=== PATIENT | female | born 1995 | race Caucasian/White ===

== ENCOUNTER 2020-12-13 15:48 | Emergency (ER) | payer SELFPAY ==
[2020-12-13 17:06] VITALS: BP 135/85; PULSE 86; RESP 18; TEMP 36.8; O2SAT 98; BMI 64.2
--- NOTE | 2020-12-13 18:19 | ECG_ITS ---
[facility] Test Date: 2020-12-13 Pat Name: Yue Morris Department: Room: Gender: Female Software Test Specialist: : 1995 Requested By: Shar Hummel Order Number: [id number] Leila MD: Annlaise Thomson M.D. Measurements Intervals [place] Rate: 80 P: 55 WI: 185 QRS: 47 QRSD: 90 T: 30 QT: 372 QTc: 432 Interpretive Statements SINUS RHYTHM WITH OCCASIONAL VENTRICULAR PREMATURE COMPLEXES Compared to ECG 05/21/2019 18:02:21 Ventricular premature complex(es) now present Electronically Signed On 12-13-2020 18:52:55 CDT by Annalise Thomson M.D. [id number]
--- NOTE | 2020-12-13 18:19 | XRR_ITS ---
PROCEDURE INFORMATION: Exam: XR Chest Exam date and time: 12/13/2020 6:19 PM Age: 25 years old Clinical indication: Sternal or substernal pain; Patient HX: Sternal cp, HX blood clots TECHNIQUE: Imaging protocol: XR of the chest. Views: 1 view. COMPARISON: CR Chest 1 [place] [id number] 05/21/2019 6:08 PM FINDINGS: Lungs: Unremarkable. No consolidation. Pleural spaces: Unremarkable. No pleural effusion. No pneumothorax. Heart/Mediastinum: Unremarkable. No cardiomegaly. Bones/joints: Unremarkable. XR/XR chest 1V portable [id number] IMPRESSION: No change, unremarkable
--- NOTE | 2020-12-13 18:31 | ED_ITS ---
HPI - Chest Pain General: Chief Complaint: Chest Pain Stated Complaint: BLOOD CLOT HX, RECENTLY TAKEN OFF MEDS, NOW WORSE Time Seen by Provider: 12/13/20 17:10 History of Present Illness: HPI narrative: Patient is a 25-year-old female comes to the ED with chest pain. Patient has past medical history blood clots and has had a PE in the past. Patient stopped taking blood thinners approximately 2 years ago due to the cost of the med and Thought it was not beneficial anymore. She had been taking blood thinners for about 3 years before she stopped. She says that 3 days ago she started developing left-sided chest pain that felt similar to her past blood clot and PE. She endorses some minimal shortness of breath. She says that pain in her chest is rated a 5 out of 10 currently. She took some tramadol before arriving to the ED and she states that has helped the chest pain some. Denies any hemoptysis, fever, chills, nausea/vomiting, abdominal pain, bladder or bowel symptoms. Associated symptoms: Reports dyspnea; Deny abdominal pain, fever(s), nausea, palpitations or vomiting Review of Systems Const: Denies: fever(s), chills or fatigue Eyes: Denies: change in vision or eye discomfort ENMT: Denies: throat pain, odynophagia, nasal discharge or nasal congestion Card: Reports: chest pain; Denies: palpitations, edema, swelling of feet/ankles, dyspnea on exertion or orthopnea Resp: Reports: dyspnea; Denies: productive cough or non-productive cough GI: Denies: abdominal pain, nausea, vomiting, diarrhea, constipation or hematochezia : Denies: flank pain, dysuria or hematuria Musc: Denies: neck pain, back pain or extremity swelling Skin/Breast: Denies: rash or new lesions Neuro: Denies: headache(s), numbness in extremities or weakness in extremities [facility] Female Reproductive History: Date of last menstrual period: 12/11/20 Physical Exam Const: COMMON NORMALS: no acute distress, patient oriented x3 and alert GENERAL APPEARANCE: cooperative and comfortable NUTRITIONAL APPEARANCE: obese morbidly obese HENMT: COMMON NORMALS: normocephalic HEAD & SCALP: normocephalic MOUTH: Normal oral and palatal mucosa present THROAT: posterior oropharynx normal and uvula midline Eye: COMMON NORMALS: Equal, round and reactive pupils present PUPIL: Yes Equal, round and reactive pupils present Neck/C-Spine: COMMON NORMALS: supple GENERAL: Yes normal visual inspection Resp: COMMON NORMALS: normal respiratory effort, No retractions, No use of accessory muscles and clear to auscultation bilaterally EFFORT & INSPECTION: Yes able to speak in complete sentences, No tachypneic, No respiratory distress and No labored AUSCULTATION: clear to auscultation bilaterally Cardio: COMMON NORMALS: regular rate, regular rhythm, S1 normal heart sound present, S2 normal heart sound present, No gallops present (Cardio), No clicks present (Cardio), No murmurs present (Cardio) and Peripheral pulses 2+ throughout RATE: regular rate RHYTHM: regular rhythm HEART SOUNDS: S1 normal heart sound present and S2 normal heart sound present PERIPHERAL PULSES: Peripheral pulses 2+ throughout GI: COMMON NORMALS: Normal to inspection, nondistended, normoactive bowel sounds present, Soft to palpation, non-tender and no masses PALPATION: Yes Soft to palpation : COMMON NORMALS: Yes no CVA tenderness BLADDER/KIDNEY EXAM: Yes no CVA tenderness Back/Pelvis: COMMON NORMALS: no CVA tenderness Extremity: COMMON NORMALS: normal to inspection Neuro: COMMON NORMALS: patient oriented x3 and moves all extremities SENSORIUM/ORIENTATION: Yes alert Skin: GENERAL SKIN EXAM: dry skin Course ED course: After patient received IV morphine Zofran her symptoms completely resolved. She said she was not having any chest pain currently. Reevaluation(s): Reevaluation #1: After patient received IV morphine she says her chest pain had completely resolved. Time: 20:15 Vital Signs: Vital signs: Vital Signs Temperature 98.2 F 12/13/20 17:06 Pulse Rate 78 12/13/20 21:14 Respiratory Rate 16 12/13/20 21:14 Blood Pressure 145/88 12/13/20 21:14 Pulse Oximetry 98 12/13/20 21:14 MDM - Chest Pain MDM Narrative: Medical decision making narrative: Patient is a 25-year-old female comes to the ED with chest pain. Patient says she has a history of blood clots and has had a PE in the past as well. Patient has not been taking any blood thinners for the past 2 years. Patient appears in no acute distress. She is morbidly obese and sitting comfortably on exam bed when I am in the room. Rest of exam was benign. CBC, CMP were unremarkable. hCG negative, troponin negative, D-dimer negative. Chest x-ray showed no acute findings. EKG showed normal sinus rhythm, 80 bpm, no ST segment elevation or depression seen. Patient was given IV morphine and Zofran while here in the ED and her chest pain completely resolved. Patient was diagnosed with noncardiac chest pain and discharged home. She is told to follow-up with her PCP in 7 to 10 days for reevaluation. Return to ED precautions given. Patient understood agree with plan. Lab Data: Attestation: I reviewed the patient's lab results. Labs: Lab Results 12/13/20 12/13/20 12/13/20 Range/Units 19:17 19:17 19:17 WBC 9.0 (4.0-10.0) 10^3/ uL RBC 5.35 H (4.1-5.3) 10^6/u L Hgb 13.1 (11.5-15.3) g/dL Hct 41.7 (37.0-47.0) % MCV 77.9 L (81-99) fL MCH 24.5 L (28.0-34.0) pg MCHC 31.4 (30.0-36.0) g/dL RDW 13.9 (12.1-15.1) % Plt Count 266 (130-400) 10^3/c mm MPV 10.5 H (7.4-10.4) fL Neut % (Auto) 65.4 % Lymph % (Auto) 28.5 % [place] % (Auto) 4.3 % Eos % (Auto) 1.4 % Baso % (Auto) 0.2 % Neut # (Auto) 5.89 (1.8-7.7) 10^3/u L Lymph # (Auto) 2.6 (0.8-4.8) 10^3/u L [place] # (Auto) 0.4 (0.2-0.9) 10^3/u L Eos # (Auto) 0.1 (0.0-0.8) 10^3/u L Baso # (Auto) 0.0 (0.0-0.1) 10^3/u L Nucleated RBC % (a uto) 0 % Nucleated RBCs # 0.0 /100WBC D-Dimer Sodium 139 (136-145) mmol/L Potassium 4.1 (3.5-5.1) mmol/L Chloride 104 (98-107) mmol/L Carbon Dioxide 25 (22-29) mmol/L Anion Gap 14.1 (5-19) BUN 10 (6-20) mg/dL Creatinine 0.7 (0.5-0.9) mg/dL GFR Calculation 102.8 (90-130) mL/min Glucose 87 (65-115) mg/dL Calculated Osmolal ity 286 (285-295) mOsm/k g Calcium 8.6 (8.5-10.5) mg/dL Total Bilirubin 0.3 (0.15-1.2) mg/dL AST 19 (0-32) U/L ALT 16 (0-33) U/L Alkaline Phosphata se 86 (35-105) IU/L Troponin T Baselin e Cancelled Total Protein 6.6 (6.6-8.7) g/dL Albumin 4.0 (3.5-5.2) g/dL Globulin 2.6 (1.3-4.6) g/dL HCG, Qual (Negative) 12/13/20 12/13/20 12/13/20 Range/Units 19:17 19:17 20:20 WBC (4.0-10.0) 10^3/ uL RBC (4.1-5.3) 10^6/u L Hgb (11.5-15.3) g/dL Hct (37.0-47.0) % MCV (81-99) fL MCH (28.0-34.0) pg MCHC (30.0-36.0) g/dL RDW (12.1-15.1) % Plt Count (130-400) 10^3/c mm MPV (7.4-10.4) fL Neut % (Auto) % Lymph % (Auto) % [place] % (Auto) % Eos % (Auto) % Baso % (Auto) % Neut # (Auto) (1.8-7.7) 10^3/u L Lymph # (Auto) (0.8-4.8) 10^3/u L [place] # (Auto) (0.2-0.9) 10^3/u L Eos # (Auto) (0.0-0.8) 10^3/u L Baso # (Auto) (0.0-0.1) 10^3/u L Nucleated RBC % (a uto) % Nucleated RBCs # /100WBC D-Dimer Cancelled Sodium (136-145) mmol/L Potassium (3.5-5.1) mmol/L Chloride (98-107) mmol/L Carbon Dioxide (22-29) mmol/L Anion Gap (5-19) BUN (6-20) mg/dL Creatinine (0.5-0.9) mg/dL GFR Calculation (90-130) mL/min Glucose (65-115) mg/dL Calculated Osmolal ity (285-295) mOsm/k g Calcium (8.5-10.5) mg/dL Total Bilirubin (0.15-1.2) mg/dL AST (0-32) U/L ALT (0-33) U/L Alkaline Phosphata se (35-105) IU/L Troponin T Baselin e 6 Total Protein (6.6-8.7) g/dL Albumin (3.5-5.2) g/dL Globulin (1.3-4.6) g/dL HCG, Qual Negative (Negative) 12/13/20 Range/Units 20:31 WBC (4.0-10.0) 10^3/ uL RBC (4.1-5.3) 10^6/u L Hgb (11.5-15.3) g/dL Hct (37.0-47.0) % MCV (81-99) fL MCH (28.0-34.0) pg MCHC (30.0-36.0) g/dL RDW (12.1-15.1) % Plt Count (130-400) 10^3/c mm MPV (7.4-10.4) fL Neut % (Auto) % Lymph % (Auto) % [place] % (Auto) % Eos % (Auto) % Baso % (Auto) % Neut # (Auto) (1.8-7.7) 10^3/u L Lymph # (Auto) (0.8-4.8) 10^3/u L [place] # (Auto) (0.2-0.9) 10^3/u L Eos # (Auto) (0.0-0.8) 10^3/u L Baso # (Auto) (0.0-0.1) 10^3/u L Nucleated RBC % (a uto) % Nucleated RBCs # /100WBC D-Dimer <= 0.27 Sodium (136-145) mmol/L Potassium (3.5-5.1) mmol/L Chloride (98-107) mmol/L Carbon Dioxide (22-29) mmol/L Anion Gap (5-19) BUN (6-20) mg/dL Creatinine (0.5-0.9) mg/dL GFR Calculation (90-130) mL/min Glucose (65-115) mg/dL Calculated Osmolal ity (285-295) mOsm/k g Calcium (8.5-10.5) mg/dL Total Bilirubin (0.15-1.2) mg/dL AST (0-32) U/L ALT (0-33) U/L Alkaline Phosphata se (35-105) IU/L Troponin T Baselin e Total Protein (6.6-8.7) g/dL Albumin (3.5-5.2) g/dL Globulin (1.3-4.6) g/dL HCG, Qual (Negative) Imaging Data^: CXR: Attestation: I personally reviewed and interpreted this imaging study as follows: Radiologist's impression: [address] [address] XRay Report Signed Patient: Yue Morris Unit #: [id number] : 1995 Age/Sex: 25 / F ADM Date: 12/13/20 Loc: ER Room/Bed: Attending Dr: Ordering Provider/Ordering MD: Shar Hummel MD Date of Service: 12/13/20 Procedure(s): XR chest 1V portable [id number] Accession Number(s): [id number] Report Number: [id number] PROCEDURE INFORMATION: Exam: XR Chest Exam date and time: 12/13/2020 6:19 PM Age: 25 years old Clinical indication: Sternal or substernal pain; Patient HX: Sternal cp, HX blood clots TECHNIQUE: Imaging protocol: XR of the chest. Views: 1 view. COMPARISON: CR Chest 1 [place] [id number] 05/21/2019 6:08 PM FINDINGS: Lungs: Unremarkable. No consolidation. Pleural spaces: Unremarkable. No pleural effusion. No pneumothorax. Heart/Mediastinum: Unremarkable. No cardiomegaly. Bones/joints: Unremarkable. XR/XR chest 1V portable [id number] IMPRESSION: No change, unremarkable Dictated By: William Pop MD Signed By: William Pop MD Signed Date/Time: 12/13/202011 EKG Data^: EKG 1: Attestation: I personally reviewed and interpreted this EKG as follows: EKG interpretation date: 12/13/20 Interpretation: Normal sinus rhythm, 80 bpm, no ST segment elevation or depression seen. 1 PVC noted. EKG 2: Attestation: I personally reviewed and interpreted this EKG as follows: EKG interpretation date: 12/13/20 Interpretation: 2-hour EKG showed normal sinus rhythm, 77 bpm, no ST segment elevation or depression seen. No acute change from baseline EKG. Discharge Plan Discharge Patient Disposition: Home Clinical Impression: Non-cardiac chest pain Condition: Stable Prescriptions: No Action No Known Home Medications RF: 0 Discharge Orders: Discharge ED (Routine); Ordered 12/13/20 Ordered By: Amandeep Thomas Referrals: Denisha Dickson MD [Primary Care Provider] - Discharge Diet: Regular Discharge Activity: Resume usual activity Patient Instructions: Noncardiac Chest Pain (ED) Activity Restrictions/Additional Instructions: Follow-up with medical provider as directed in about 7 days for reevaluation. Return to the ER or your medical provider if condition worsens. Please read and understand discharge instructions. Thank you for choosing [facility] for your healthcare needs today. Please realize this is an emergency room and that we are providing you with a medical screening exam and this may not be complete and all inclusive of all the testing and or work up that you may need to determine your ailment or severity of your illness. It is very important that you follow up as instructed or that you return to the Emergency Department should you have concerns or if your condition changes or worsens in any way. Coding Level of Care Code ED [facility] for [facility] Fwd Exam Comprehensive
[2020-12-13 18:48] VITALS: BP 147/107; PULSE 70; RESP 16; O2SAT 99
--- NOTE | 2020-12-13 19:13 | PC.NURSE ---
Report from ADELAIDA Winters
[2020-12-13] MEDS: ondansetron 2 mg/ML SDV 2 mL 4 MG IVP (19:27)
[2020-12-13] MEDS: morphine 4 mg/mL SDV 1 mL IVP (19:27)
[2020-12-13 19:29] VITALS: BP 152/85; PULSE 79; RESP 17; O2SAT 97
[2020-12-13 19:40] LABS: Basophils % 0.2 %; Eosinophils # 0.1 10^3/uL (0.0-0.8); Eosinophils % 1.4 %; Hematocrit 41.7 % (37.0-47.0); Hemoglobin 13.1 g/dL (11.5-15.3); Lymphocytes # 2.6 10^3/uL (0.8-4.8); Lymphocytes % 28.5 %; Mean Corpuscular HGB Conc 31.4 g/dL (30.0-36.0); Mean Corpuscular Hemoglobin 24.5 pg (28.0-34.0); Mean Corpuscular Volume 77.9 fL (81-99); Mean Platelet Volume 10.5 fL (7.4-10.4); Monocytes # 0.4 10^3/uL (0.2-0.9); Monocytes % 4.3 %; Neutrophils # 5.89 10^3/uL (1.8-7.7); Neutrophils % 65.4 %; Nucleated Red Blood Cells % 0 %; Platelet Count 266 10^3/cmm (130-400); Red Blood Count 5.35 10^6/uL (4.1-5.3); Red Cell Distribution Width 13.9 % (12.1-15.1)
[2020-12-13 19:43] LABS: HCG, Serum Qual Negative (Negative)
[2020-12-13 19:51] LABS: Alanine Aminotransferase 16 U/L (0-33); Alkaline Phosphatase 86 IU/L (35-105); Aspartate Amino Transferase 19 U/L (0-32); Blood Urea Nitrogen 10 mg/dL (6-20); Calcium 8.6 mg/dL (8.5-10.5); Carbon Dioxide 25 mmol/L (22-29); Chloride 104 mmol/L (98-107); Globulin 2.6 g/dL (1.3-4.6); Glomerular Filtration Rate 102.8 mL/min (90-130); Glucose 87 mg/dL (65-115); Osmolality Calculated 286 mOsm/kg (285-295); Sodium 139 mmol/L (136-145); Total Bilirubin 0.3 mg/dL (0.15-1.2); Total Protein 6.6 g/dL (6.6-8.7)
[2020-12-13 20:16] LABS: Anion Gap 14.1 (5-19); Potassium 4.1 mmol/L (3.5-5.1)
--- NOTE | 2020-12-13 20:19 | ECG_ITS ---
[facility] Test Date: 2020-12-13 Pat Name: Yue Morris Department: Room: Gender: Female Appian Developer: : 1995 Requested By: Shar Hummel Order Number: [id number] Reading MD: DAJUAN SALOMON Measurements Intervals [place] Rate: 77 P: 16 TN: 172 QRS: 35 QRSD: 86 T: 22 QT: 387 QTc: 438 Interpretive Statements SINUS RHYTHM Compared to ECG 12/13/2020 18:51:38 Ventricular premature complex(es) no longer present Electronically Signed On 12-14-2020 18:41:00 CDT by DAJUAN SALOMON [id number]
[2020-12-13 20:43] LABS: Troponin(5th) Baseline 6 ng/L (0-10)
[2020-12-13 20:49] LABS: D Dimer <= 0.27 ug/mIFEU (0-0.59)
[2020-12-13 21:14] VITALS: BP 145/88; PULSE 78; RESP 16; O2SAT 98
== END 2020-12-13 21:18 | disposition home or self-care (01) ==
PROVIDERS: Emergency Medicine; Emergency Provider Physician Assistant; PCP Family Medicine
DX: R07.89 Other chest pain (principal)
CPT/HCPCS: 36415; 71045; 80053; 84484; 84703; 85025; 85378; 93005; 96374; 96375; 99284; J2270; J2405